=== PATIENT | female | born 1990 | race Caucasian/White ===

== ENCOUNTER 2017-01-01 10:33 | Emergency (ER) | payer MEDICAID ==
[~2017-01-01] VITALS: Ht 175.3 cm; Wt 122.2 kg
[~2017-01-01 10:33] MED LIST: CONCCAP2 PO
[2017-01-01 10:34] VITALS: BP 169/96; PULSE 88; RESP 20; TEMP 97.4; O2SAT 99
[2017-01-01] MEDS ORDERED: SODIUM CHLOR 0.9% 1000 ML INJ 1,000 ML IV ONE (10:48)
--- NOTE | 2017-01-01 10:53 | PD ---
HPI Chief Complaint: Dizziness Time Seen by Provider: 10:48 Travel History International Travel<30 days: No Contact w/Intl Traveler<30days: No Traveled to known affect area: No History of Present Illness HPI 26-year-old female who is 36 weeks by dates, had been seen by her nurse practitioner yesterday and had a mildly elevated blood pressure 140/89, otherwise normal , presents to the ER today because she states that she woke up this morning dizzy, states that the room is spinning, worse with head movements or position changes. She denies any headache, vomiting, fevers, diarrhea, or any other symptoms. She denies any bleeding or any urinary symptoms. She denies any previous history of dizziness. Modifying Factors: None Associated Signs & Symptoms: Dizziness Risk Factors: None PFSH Past Medical History Diminished Hearing: No Tetanus Vaccination: Unknown Influenza Vaccination: No ?: LMP: APR 2016 : 1 Para: 0 Social History Alcohol Use: No Tobacco Use: No Substance Use: No Allergies-Medications (Allergen,Severity, Reaction): Coded Allergies: No Known Allergies (Verified , 12/31/16) Reported Meds & Prescriptions Reported Meds & Active Scripts Active Concept Dha 53.5-38-1 mg ( Vit W/ Fe Fum-Iron Po) 1 Cap Cap 1 Tab PO DAILY Concept Dha 53.5-38-1 mg ( Vit W/ Fe Fum-Iron Po) 1 Cap Cap Review of Systems Except as stated in HPI: all other systems reviewed are Neg Physical Exam Narrative GENERAL: Well-developed gravid young white female patient who is not currently in acute distress. Awake and oriented 3. SKIN: Focused skin assessment warm/dry. HEAD: Atraumatic. Normocephalic. EYES: Pupils equal and round. No scleral icterus. No injection or drainage. ENT: No nasal bleeding or discharge. Mucous membranes pink and moist. NECK: Trachea midline. No JVD. CARDIOVASCULAR: Regular rate and rhythm. No murmur appreciated. RESPIRATORY: No accessory muscle use. Clear to auscultation. Breath sounds equal bilaterally. GASTROINTESTINAL: Abdomen gravid, non-tender, nondistended. Hepatic and splenic margins not palpable. MUSCULOSKELETAL: No obvious deformities. No clubbing. No cyanosis. No edema. NEUROLOGICAL: Awake and alert. No obvious cranial nerve deficits. Motor grossly within normal limits. Normal speech. PSYCHIATRIC: Appropriate mood and affect; insight and judgment normal. Data Data Last Documented VS Vital Signs Date Time Temp Pulse Resp B/P Pulse Ox O2 Delivery O2 Flow Rate FiO2 01/01/17 11:40 85 18 140/86 99 Room Air 01/01/17 10:34 97.4 Orders Electrocardiogram (01/01/17 10:48) Complete Blood Count With Diff (01/01/17 10:48) Comprehensive Metabolic Panel (01/01/17 10:48) Urinalysis - C+S If Indicated (01/01/17 10:48) Ecg Monitoring (01/01/17 10:48) Iv Access Insert/Monitor (01/01/17 10:48) Oximetry (01/01/17 10:48) Meclizine (Antivert) (01/01/17 11:00) Ondansetron Inj (Zofran Inj) (01/01/17 11:00) Sodium Chloride 0.9% Flush (Ns Flush) (01/01/17 11:00) Sodium Chlor 0.9% 1000 Ml Inj (Ns 1000 M (01/01/17 10:48) Labs Laboratory Tests Test 01/01/17 10:55 White Blood Count 7.7 TH/MM3 Red Blood Count 3.99 MIL/MM3 Hemoglobin 11.8 GM/DL Hematocrit 34.2 % Mean Corpuscular Volume 85.5 FL Mean Corpuscular Hemoglobin 29.5 PG Mean Corpuscular Hemoglobin 34.5 % Concent Red Cell Distribution Width 14.4 % Platelet Count 153 TH/MM3 Mean Platelet Volume 10.8 FL Neutrophils (%) (Auto) 74.6 % Lymphocytes (%) (Auto) 19.1 % Monocytes (%) (Auto) 5.3 % Eosinophils (%) (Auto) 0.6 % Basophils (%) (Auto) 0.4 % Neutrophils # (Auto) 5.8 TH/MM3 Lymphocytes # (Auto) 1.5 TH/MM3 Monocytes # (Auto) 0.4 TH/MM3 Eosinophils # (Auto) 0.0 TH/MM3 Basophils # (Auto) 0.0 TH/MM3 CBC Comment DIFF FINAL Differential Comment Urine Color LIGHT-YELLOW Urine Turbidity HAZY Urine pH 5.5 Urine Specific Mead 1.005 Urine Protein NEG mg/dL Urine Glucose (UA) NEG mg/dL Urine Ketones 10 mg/dL Urine Occult Blood NEG Urine Nitrite NEG Urine Bilirubin NEG Urine Urobilinogen LESS THAN 2.0 MG/DL Urine Leukocyte Esterase TRACE Urine RBC 1 /hpf Urine WBC 2 /hpf Urine Squamous Epithelial 6 /hpf Cells Urine Bacteria FEW /hpf Microscopic Urinalysis Comment CULT NOT INDICATED Sodium Level 140 MEQ/L Potassium Level 3.6 MEQ/L Chloride Level 109 MEQ/L Carbon Dioxide Level 23.4 MEQ/L Anion Gap 8 MEQ/L Blood Urea Nitrogen 6 MG/DL Creatinine 0.60 MG/DL Estimat Glomerular Filtration 119 ML/MIN Rate Random Glucose 74 MG/DL Calcium Level 8.7 MG/DL Total Bilirubin 0.3 MG/DL Aspartate Amino Transf 11 U/L (AST/SGOT) Alanine Aminotransferase 11 U/L (ALT/SGPT) Alkaline Phosphatase 116 U/L Total Protein 6.6 GM/DL Albumin 2.5 GM/DL [facility] Medical Decision Making Medical Screen Exam Complete: Yes Emergency Medical Condition: Yes Medical Record Reviewed: Yes Interpretation(s) EKG shows normal sinus rhythm at a rate of 70 bpm with no signs of acute ST-T changes. There is a sinus arrhythmia notable on EKG. EKG was briefly discussed with Dr. Amos who is cooperative education coordinator and he states that this is not necessarily concerning for any underlying cardiac issues. Laboratory Tests Test 01/01/17 10:55 Red Blood Count 3.99 MIL/MM3 (4.00-5.30) Hematocrit 34.2 % (35.0-46.0) Neutrophils (%) (Auto) 74.6 % (16.0-70.0) Urine Turbidity HAZY (CLEAR) Urine Ketones 10 mg/dL (NEG) Urine Leukocyte Esterase TRACE (NEG) Urine Bacteria FEW /hpf (NONE) Chloride Level 109 MEQ/L (98-107) Blood Urea Nitrogen 6 MG/DL (7-18) Aspartate Amino Transf 11 U/L (15-37) (AST/SGOT) Albumin 2.5 GM/DL (3.4-5.0) Differential Diagnosis Dizzinessbenign positional vertigo versus electrolyte abnormalities versus hypertensive urgency versus dehydration versus preeclampsia Narrative Course Patient was given IV fluids, nausea medication, and meclizine in the ER. On reevaluation an hour later, she is feeling much improved, is turning her head without issues. Vital signs are stable in the ER and blood pressure is significantly improved. At this point, I do not suspect underlying metabolic abnormalities, cardiac abnormalities, as the cause. I do suspect that she may have some underlying benign positional vertigo. 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 Return for any worsening in symptoms as necessary. The plan has been discussed with the patient and she states understanding. Diagnosis Primary Impression: Vertigo Med/Other Pt SpecificInfo: Prescription(s) given Scripts Ondansetron Odt (Zofran Odt)4 Mg Tab4 Mg SL Q6HR PRN (Nausea/Vomiting) #7 TAB Ref 0 Prov:Damion Aguero MD 01/01/17 Meclizine 25 Mg Tab25 Mg PO DIRECTED PRN (VERTIGO) #15 TAB Ref 0 Prov:Damion Aguero MD 01/01/17 Disposition: 01 DISCHARGE HOME Condition: Stable Damion Aguero MD Jan 01, 2017 10:53
[2017-01-01] MEDS ORDERED: MECLIZINE HCL 25 MG TAB PO ONE (11:00)
[2017-01-01] MEDS ORDERED: ONDANSETRON HCL 4 MG/2 ML VIAL IVP ONE (11:00)
[2017-01-01] MEDS ORDERED: SODIUM CHLORIDE 0.9% FLUSH 10 ML FLUSH IVF PRN (11:00)
[2017-01-01 11:13] LABS: AUTOMATED NEUTROPHIL # 5.8 TH/MM3 (1.8-7.7); BASOPHIL % 0.4 % (0.0-2.0); EOSINOPHIL % 0.6 % (0.0-4.0); HEMATOCRIT 34.2 % (35.0-46.0); HEMO FLAGS DIFF FINAL; LYMPH % 19.1 % (9.0-44.0); LYMPHOCYTE # 1.5 TH/MM3 (1.0-4.8); MEAN CELL VOLUME 85.5 FL (80.0-100.0); MEAN CORPUSCULAR HEMOGLOBIN 29.5 PG (27.0-34.0); MEAN CORPUSCULAR HGB CONC 34.5 % (32.0-36.0); MONO % 5.3 % (0.0-8.0); NEUT % 74.6 % (16.0-70.0); PLATELET COUNT 153 TH/MM3 (150-450); RED BLOOD COUNT 3.99 MIL/MM3 (4.00-5.30); RED CELL DISTRIBUTION WIDTH 14.4 % (11.6-17.2); WHITE BLOOD COUNT 7.7 TH/MM3 (4.0-11.0)
[2017-01-01 11:29] LABS: BACTERIA, URINE FEW /hpf; BLOOD, URINE NEG (NEG); COMMENT (UR) CULT NOT INDICATED; CULTURE IF INDICATED CULT NOT INDICATED; GLUCOSE,URINE NEG (NEG); KETONE, URINE 10 mg/dL (NEG); NITRITE,URINE NEG (NEG); PH, URINE 5.5 (5.0-8.5); SQUAMOUS EPITHELIAL CELL URINE 6 /hpf (0-5); URINE COLOR LIGHT-YELLOW (YELLW/STRAW)
[2017-01-01 11:40] VITALS: BP 140/86; PULSE 85; RESP 18; O2SAT 99
[2017-01-01 11:49] LABS: ALT (GPT) 11 U/L (10-53); ANION GAP 8 MEQ/L (5-15); AST (GOT) 11 U/L (15-37); BICARBONATE 23.4 MEQ/L (21.0-32.0); BLOOD UREA NITROGEN 6 MG/DL (7-18); CHLORIDE 109 MEQ/L (98-107); GLOMERULAR FILTRATION RATE 119 ML/MIN (>89); POTASSIUM 3.6 MEQ/L (3.5-5.1); SODIUM (NA) 140 MEQ/L (136-145)
[2017-01-01 11:51] LABS: ALKALINE PHOSPHATASE 116 U/L (45-117); TOTAL BILIRUBIN ADULT 0.3 MG/DL (0.2-1.0)
[2017-01-01] MEDS ORDERED: MECL-62 PO (12:25)
[2017-01-01] MEDS ORDERED: ZOFR4TAB3 SL (12:25)
--- NOTE | 2017-01-02 13:40 | EKG ---
Date Performed: 01/01/2017 Time Performed: 11:34:59 PTAGE: 26 years EKG: Sinus rhythm WITH 2ND DEGREE AV BLOCK, MOBITZ TYPE II MINIMAL VOLTAGE CRITERIA FOR LVH, CONSIDER NORMAL VARIANT M INIMAL ST DEPRESSION ABNORMAL ECG NO PREVIOUS TRACING DOCTOR: Live Brewer Interpretating Date/Time 01/04/2017 08:10:24
--- NOTE | 2017-01-02 13:40 | EKG ---
Date Performed: 01/01/2017 Time Performed: 12:27:36 PTAGE: 26 years EKG: Sinus rhythm Compared to prior tracing no significant change NORMAL ECG PREVIOUS TRACING : 01/01/2017 11.34 DOCTOR: Live Brewer Interpretating Date/Time 01/04/2017 08:10:10
== END 2017-01-01 12:43 | disposition home or self-care (01) ==
LOC: NEPE 10:33
DX: O99.89 Other specified diseases and conditions complicating pregnancy, childbirth and the puerperium (principal); R42 Dizziness and giddiness; R94.31 Abnormal electrocardiogram [ECG] [EKG]; Z3A.36 36 weeks gestation of pregnancy
CPT/HCPCS: 80053; 81001; 85025; 93005; 96360; 99284; J7030

== ENCOUNTER 2017-02-01 21:57 | Inpatient (IN) | payer MEDICAID ==
[~2017-02-01] VITALS: Ht 175.3 cm; Wt 122.5 kg
--- NOTE | 2017-02-01 23:15 | HHI.HP ---
HPI Chief Complaint 40 weeks IUP Presents in labor Date Seen: February 01, 2017 Time Seen: 22:00 Travel History International Travel<30 Days: No Contact w/Intl Traveler<30Days: No Known Affected Area: No History of Present Illness HPI Pt is a 26 yo who presents with c/o contractions. [facility] 01-31-2017 making her 40 weeks and 1 day today. care at [facility] No vaginal bleeding Denies leaking Pregnacy was complicated by low lying placenta but this subsequently resolved cervix 3 cm dilated with irregular contraction Para: 3 : 4 Last Menstrual Period: Apr 26, 2016 History Past Medical History Narrative Medical Nil significant Medical History: Denies Significant Hx Past Surgical History Surgical History: No Previous Surgery Family History Family History: Negative Social History Alcohol Use: No Tobacco Use: No Substance Abuse: No Allergies-Medications (Allergen,Severity, Reaction): Coded Allergies: No Known Allergies (Verified , 01/27/17) Home Meds Active Scripts Vit W/ Fe Fum-Iron Po (Concept Dha 53.5-38-1 mg)1 Cap Cap1 Tab PO DAILY #30 BOTTLE Ref 11 Prov:Lucille Medina 07/21/16 Vit W/ Fe Fum-Iron Po (Concept Dha 53.5-38-1 mg)1 Cap Cap Sample #6 Prov:Lucille Medina 07/21/16 Review of Systems Except as stated in HPI: all other systems reviewed are Neg Physical Exam Narrative GENERAL: Well-nourished, well-developed patient. SKIN: Warm and dry. HEAD: Normocephalic and atraumatic. EYES: No scleral icterus. No injection or drainage. ENT: No nasal drainage noted. Mucous membranes pink. Airway patent. NECK: Supple, trachea midline. No JVD. CARDIOVASCULAR: Regular rate and rhythm without murmurs, gallops, or rubs. RESPIRATORY: Breath sounds equal bilaterally. No accessory muscle use. BREASTS: Bilateral exam showed no masses , no retractions, no nipple discharge. ABDOMEN/GI: Abdomen soft, non-tender, bowel sounds present, no rebound, no guarding Gravid to [40] weeks size Fundal Height: [40] GENITOURINARY: External Genitalia: intact and normal in appearance BUS glands: [-] Cervix: [soft-] Dilatation: [3cm] Effacement: [50%] Station: [-3] Presentation: [Vertex] Membranes: [intact or ruptured] Uterine Contractions: [-] FHT's: Category: [-] Baseline: [-] Reactive: [-] Variability: [-] Decels: [-] EXTREMITIES: No cyanosis or edema. BACK: Nontender without obvious deformity. No CVA tenderness. NEUROLOGICAL: Awake and alert. Motor and sensory grossly within normal limits. Five out of 5 muscle strength in all muscle groups. Normal speech. Data Data Vital Signs Reviewed: Yes Orders Ob (2e) Additional Admit Info (02/01/17 22:47) Labs Term labor Plan is for ptiocin augmentation, and AROM when able. GBS is negative. Ricky Colunga MD February 01, 2017 23:15
[2017-02-01] MEDS ORDERED: LACTATED RINGER'S 1000 ML INJ 1,000 ML IV SCH (23:25)
[2017-02-01] MEDS ORDERED: LACTATED RINGER'S 1000 ML INJ 1,000 ML IV PRN (23:25)
[2017-02-01] MEDS ORDERED: LIDOCAINE HCL 1% 50 ML VIAL I-DERMAL PRN (23:30)
[2017-02-01] MEDS ORDERED: OXYTOCIN 30 UNITS-500ML PREMIX 500 ML IV ONE (23:30)
[2017-02-01] MEDS ORDERED: SODIUM CHLORID 0.9% 500 ML INJ 500 ML IV PRN (23:30)
[2017-02-01] MEDS ORDERED: ONDANSETRON HCL 4 MG/2 ML VIAL IV PRN (23:30)
[2017-02-01] MEDS ORDERED: LIDOCAINE HCL 1% 50 ML VIAL INFIL PRN (23:30)
[2017-02-01] MEDS ORDERED: OXYTOCIN 30 UNITS-500ML PREMIX 500 ML IV SCH (23:30)
[2017-02-01] MEDS ORDERED: CITRIC ACID-SODIUM CITRATE LIQ 30 ML UDC PO SCH (23:30)
[2017-02-01] MEDS ORDERED: MINERAL OIL 10 ML VIAL TOPICAL PRN (23:30)
[2017-02-01 23:43] LABS: AUTOMATED NEUTROPHIL # 6.1 TH/MM3 (1.8-7.7); BASOPHIL % 0.2 % (0.0-2.0); EOSINOPHIL % 0.6 % (0.0-4.0); HEMATOCRIT 34.5 % (35.0-46.0); HEMO FLAGS DIFF FINAL; LYMPH % 21.5 % (9.0-44.0); LYMPHOCYTE # 1.8 TH/MM3 (1.0-4.8); MEAN CELL VOLUME 85.7 FL (80.0-100.0); MEAN CORPUSCULAR HEMOGLOBIN 28.4 PG (27.0-34.0); MEAN CORPUSCULAR HGB CONC 33.2 % (32.0-36.0); MONO % 5.1 % (0.0-8.0); NEUT % 72.6 % (16.0-70.0); PLATELET COUNT 146 TH/MM3 (150-450); RED BLOOD COUNT 4.03 MIL/MM3 (4.00-5.30); RED CELL DISTRIBUTION WIDTH 14.8 % (11.6-17.2); WHITE BLOOD COUNT 8.4 TH/MM3 (4.0-11.0)
[2017-02-01 23:45] LABS: BACTERIA, URINE MANY /hpf; BLOOD, URINE NEG (NEG); COMMENT (UR) CULTURE INDICATED; CULTURE IF INDICATED CULTURE INDICATED; GLUCOSE,URINE NEG (NEG); HYALINE CAST, URINE 1 /lpf (RARE); KETONE, URINE NEG (NEG); MUCUS URINE FEW /lpf (OCC); NITRITE,URINE NEG (NEG); SQUAMOUS EPITHELIAL CELL URINE 4 /hpf (0-5); URINE COLOR LIGHT-YELLOW (YELLW/STRAW)
[2017-02-01] MEDS ORDERED: SODIUM CHLOR 0.9% 1000 ML INJ 1,000 ML IV PRN (23:45)
[2017-02-02] VITALS (58 sets, daily range): BP systolic 75–135; BP diastolic 48–81; PULSE 76–122; RESP 1–18; TEMP 97.8–98.4
[2017-02-02] MEDS ORDERED: fentaNYL 2MCG-BUPIV 0.125% INJ 100 ML ONE (03:57)
--- NOTE | 2017-02-02 04:00 | PD.LABORPN ---
Subjective Subjective Pt feeling contractions. FHR Cat 1 baseline 120b/min TOCO Q2-3 minutes, Pitocin at 3 MU/min SVE 5cm/ 50%/-2 AROM done with AmniHook, copious, clear IUPC inserted PLAN: Continue Pitocin per protocol Objective Vital Signs Vital Signs Date Time Temp Pulse Resp B/P Pulse Ox O2 Delivery O2 Flow Rate FiO2 02/02/17 03:31 78 118/78 02/02/17 03:08 79 110/65 02/02/17 03:04 98.2 18 02/02/17 03:01 82 110/69 02/02/17 02:45 18 02/02/17 02:45 1 02/02/17 02:31 117/67 02/02/17 02:31 76 02/02/17 02:01 82 102/77 02/02/17 01:44 18 02/02/17 01:31 93 117/76 02/02/17 01:01 96 112/74 02/02/17 00:48 85 116/68 02/02/17 00:47 18 02/02/17 00:45 18 02/02/17 00:31 84 113/65 02/02/17 00:15 18 02/02/17 00:11 88 110/66 Objective Pelvic Exam: Cervix: [soft-] Dilatation: [6cm-] Effacement: 50%[-] Station: [-2-] Presentation: [vertex] Membranes: [ruptured] Uterine Contractions: [2-3-] FHT's: Category: [1] Baseline: [120] Reactive: [-] Variability: [moderate] Decels: [-] Assessment/Plan Assessment and Plan Term labor. Continue pitocin per protocol Ricky Colunga MD February 02, 2017 04:00
[2017-02-02] MEDS ORDERED: NO SYSTEM NARCOTICS PRN (05:00)
[2017-02-02] MEDS ORDERED: ePHEDrine/NS 25 MG/5 ML SYR IV PRN (05:00)
[2017-02-02] MEDS ORDERED: DO NOT ADMINISTER ANTICOAGULANTS PRN (05:00)
[2017-02-02] MEDS ORDERED: fentaNYL 2MCG-BUPIV 0.125% 100 ML EPIDURAL SCH (05:00)
--- NOTE | 2017-02-02 05:22 | PD.OB.DELI ---
Delivery Date: February 02, 2017 Anesthesia: Epidural Episiotomy: None Vaginal Delivery: Normal Presentation: Occiput anterior Nuchal Cord: x1 Delayed cord clamping (45 sec): No : Female One Minute : 9 Five Minute : 9 Weight: 3595grams ( 7lb 15oz) Placenta: Spontaneous delivery Laceration: No lacerations Ricky Colunga MD February 02, 2017 05:22
[2017-02-02] MEDS ORDERED: ONDANSETRON ODT 4 MG TAB PO PRN (05:30)
[2017-02-02] MEDS ORDERED: SODIUM CHLORIDE 0.9% FLUSH 10 ML FLUSH IV FLUSH PRN (05:30)
[2017-02-02] MEDS ORDERED: ZOLPIDEM TARTRATE 5 MG TAB PO PRN (05:30)
[2017-02-02] MEDS ORDERED: ALUMINUM/MAGNESIUM/SIMETH 30 ML CUP PO PRN (05:30)
[2017-02-02] MEDS ORDERED: IBUPROFEN 600 MG TAB PO PRN (05:30)
[2017-02-02] MEDS ORDERED: BENZOCAINE 20% TOPICAL SPRAY 60 ML CAN TOPICAL PRN (05:30)
[2017-02-02] MEDS ORDERED: OXYTOCIN 30 UNITS-500ML PREMIX 500 ML IV ONE (05:30)
[2017-02-02] MEDS ORDERED: ACETAMINOPHEN 325 MG TAB PO PRN (05:30)
[2017-02-02] MEDS ORDERED: WITCH HAZEL 50%/GLYCERIN 12.5% 40 PAD JAR TOPICAL PRN (05:30)
[2017-02-02] MEDS ORDERED: oxyCODONE/ACETAMINOPHEN 5 MG/325 MG TAB PO PRN (05:30)
[2017-02-02] MEDS ORDERED: DOCUSATE SODIUM 50 MG/SENNA 8.6 MG TAB PO PRN (05:30)
--- NOTE | 2017-02-02 08:38 | HHI.OB ---
Subjective Post Day: 0 Remarks Patient is a 26-year-old delivered at 40 weeks and 2 days. Patient is day 0 after normal vaginal delivery. Patient's pain is well- controlled. Patient reports drinking without any nausea or vomiting. Patient reports minimal bleeding. Patient has passed gas but no bowel movements. Patient is walking without lower extremity pain or shortness of breath. Patient reports desire for contraception with tubal ligation. Objective Vitals/I&O Vital Signs Date Time Temp Pulse Resp B/P Pulse Ox O2 Delivery O2 Flow Rate FiO2 02/02/17 07:11 96 103/61 02/02/17 07:09 98.4 18 02/02/17 07:01 91 113/65 02/02/17 06:48 18 02/02/17 06:46 76 120/68 02/02/17 06:31 78 104/59 02/02/17 06:19 18 02/02/17 06:16 94 103/66 02/02/17 06:05 18 02/02/17 06:01 88 104/56 02/02/17 05:50 18 02/02/17 05:46 94 94/66 02/02/17 05:35 97.9 02/02/17 05:35 18 02/02/17 05:31 87 111/49 02/02/17 05:20 18 02/02/17 05:15 95 02/02/17 05:10 115 02/02/17 05:10 93 96/61 02/02/17 05:05 94 02/02/17 05:03 104 75/48 02/02/17 05:01 95 92/48 02/02/17 05:00 105 02/02/17 04:51 89 107/57 02/02/17 04:50 87 02/02/17 04:46 87 114/49 02/02/17 04:45 87 02/02/17 04:45 97.8 02/02/17 04:42 18 02/02/17 04:41 79 108/58 02/02/17 04:40 79 02/02/17 04:36 86 104/54 02/02/17 04:35 85 02/02/17 04:31 83 120/62 02/02/17 04:30 84 18 02/02/17 04:26 122 116/71 02/02/17 04:25 82 02/02/17 04:21 92 127/65 02/02/17 04:20 90 02/02/17 04:18 90 135/81 02/02/17 04:15 79 02/02/17 04:01 76 116/81 02/02/17 04:00 18 02/02/17 03:57 18 02/02/17 03:31 78 118/78 02/02/17 03:08 79 110/65 02/02/17 03:04 98.2 18 02/02/17 03:01 82 110/69 02/02/17 02:45 18 02/02/17 02:45 1 02/02/17 02:31 117/67 02/02/17 02:31 76 02/02/17 02:01 82 102/77 02/02/17 01:44 18 02/02/17 01:31 93 117/76 02/02/17 01:01 96 112/74 02/02/17 00:48 85 116/68 02/02/17 00:47 18 02/02/17 00:45 18 02/02/17 00:31 84 113/65 02/02/17 00:15 18 02/02/17 00:11 88 110/66 Objective Remarks GENERAL: Well-nourished, well-developed obese female patient. CARDIOVASCULAR: Regular rate and rhythm without murmurs, gallops, or rubs. RESPIRATORY: Breath sounds equal bilaterally. No accessory muscle use. ABDOMEN/GI: Abdomen soft, non-tender. Fundus: Firm, non-tender at umbilicus. GENITOURINARY: Light to moderate bleeding. EXTREMITIES: No cyanosis or edema, non-tender, without signs of DVT. Medications and IVs Current Medications Medications (Trade) Dose Ordered Sig/Roberto Route Start Time Stop Time Status Last Admin Miscellaneous Information No systemic narcotics to be given except... UNSCH PRN .XX 02/02/17 05:00 02/03/17 04:59 Miscellaneous Information DO NOT ADMINISTER ANY ANTICOAGUL... UNSCH PRN .XX 02/02/17 05:00 02/03/17 04:59 (NS Flush) 2 ml UNSCH PRN IV FLUSH 02/02/17 05:30 (Tylenol) 650 mg Q4H PRN PO 02/02/17 05:30 (Motrin) 600 mg Q6H PRN PO 02/02/17 05:30 (Percocet 5-325 Mg) 1 tab Q4H PRN PO 02/02/17 05:30 (Americaine 20% Top Spr) 1 spray Q4H PRN TOPICAL 02/02/17 05:30 (Tucks Pads) 1 applic QID PRN TOPICAL 02/02/17 05:30 (Yadira-Colace) 2 tab Q12H PRN PO 02/02/17 05:30 (Ambien) 5 mg HS PRN PO 02/02/17 05:30 (M-M-R Ii Inj) 0.5 ml ONCE ONCE SQ 02/02/17 16:00 02/02/17 16:01 (Boostrix Inj) 0.5 ml ONCE ONCE IM 02/02/17 16:00 02/02/17 16:01 (Mag-Al Plus Susp Liq) 15 ml Q8H PRN PO 02/02/17 05:30 (Zofran Odt) 4 mg Q6H PRN PO 02/02/17 05:30 Assessment/Plan Problem List: (1) (spontaneous vaginal delivery) Assessment and Plan Patient is a 26-year-old delivered at 40 weeks and 2 days. Patient is day 0 after normal vaginal delivery. Patient was counseled to do 6 weeks of pelvic rest. Patient was counseled to follow up in 6 weeks. Patient requested contraception with tubal ligation as an outpatient. --AF VSS --Continue routine care --Motrin and Percocet when necessary for pain --Encourage OOB --Pelvic rest for 6 weeks will need follow-up appointment at that time. --Contraception: Patient plans on outpatient tubal ligation --Anticipate discharge in 1-2 days Discharge Planning Anticipate discharge in 1-2 days Jim Mustafa MD R1 February 02, 2017 08:38
[2017-02-02] MEDS ORDERED: DIPHTH/TETANUS/ACEL PERTUSSIS (BOOSTER) 0.5 ML VIAL/PFS IM ONE (16:00)
[2017-02-02] MEDS ORDERED: MEASLES, MUMPS, RUBELLA VACCINE 0.5 ML VIAL SQ ONE (16:00)
[2017-02-03 08:25] VITALS: BP 116/69; PULSE 76; RESP 18; TEMP 98.6
--- NOTE | 2017-02-03 11:27 | HHI.OB ---
Subjective Post Day: 1 Remarks Patient is a 26-year-old who delivered at 40 weeks and 2 days. Patient is day 1 after normal vaginal delivery. Patient's pain is well- controlled. Patient reports drinking without any nausea or vomiting. Patient reports a little bleeding. Patient has passed gas and bowel movements. Patient is walking without lower extremity pain or shortness of breath. Patient reports desire for contraception with outpatient tubal ligation. Objective Vitals/I&O Vital Signs Date Time Temp Pulse Resp B/P Pulse Ox O2 Delivery O2 Flow Rate FiO2 02/03/17 08:25 76 18 116/69 02/03/17 08:25 98.6 02/02/17 19:50 76 115/66 02/02/17 19:50 98.0 17 Objective Remarks GENERAL: Well-nourished, well-developed obese female patient. CARDIOVASCULAR: Regular rate and rhythm without murmurs, gallops, or rubs. RESPIRATORY: Breath sounds equal bilaterally. No accessory muscle use. ABDOMEN/GI: Abdomen soft, non-tender. Fundus: Firm, non-tender at umbilicus. GENITOURINARY: Light to moderate bleeding. EXTREMITIES: No cyanosis or edema, non-tender, without signs of DVT. Medications and IVs Current Medications Medications (Trade) Dose Ordered Sig/Roberto Route Start Time Stop Time Status Last Admin (NS Flush) 2 ml UNSCH PRN IV FLUSH 02/02/17 05:30 (Tylenol) 650 mg Q4H PRN PO 02/02/17 05:30 (Motrin) 600 mg Q6H PRN PO 02/02/17 05:30 02/02/17 23:17 (Percocet 5-325 Mg) 1 tab Q4H PRN PO 02/02/17 05:30 (Americaine 20% Top Spr) 1 spray Q4H PRN TOPICAL 02/02/17 05:30 02/02/17 14:35 (Tucks Pads) 1 applic QID PRN TOPICAL 02/02/17 05:30 02/02/17 14:35 (Yadira-Colace) 2 tab Q12H PRN PO 02/02/17 05:30 (Ambien) 5 mg HS PRN PO 02/02/17 05:30 (Mag-Al Plus Susp Liq) 15 ml Q8H PRN PO 02/02/17 05:30 (Zofran Odt) 4 mg Q6H PRN PO 02/02/17 05:30 Assessment/Plan Problem List: (1) (spontaneous vaginal delivery) Assessment and Plan Patient is a 26-year-old who delivered at 40 weeks and 2 days. Patient is day 1 after normal vaginal delivery. Patient was counseled to do 6 weeks of pelvic rest. Patient was counseled to follow up in 6 weeks. Patient requested contraception with tubal ligation as an outpatient, and she declined any form of contraception that we offer here in the hospital. --AF VSS --Continue routine care --Motrin and Percocet when necessary for pain. Discharge on Motrin and Tylenol. --Encourage OOB --Pelvic rest for 6 weeks will need follow-up appointment at that time. --Contraception: Patient plans on outpatient tubal ligation --Anticipate discharge today Discharge Planning Anticipate discharge today. Jim Mustafa MD R1 February 03, 2017 11:27
[2017-02-03] MEDS ORDERED: ACET1TAB86 PO (11:28)
[2017-02-03] MEDS ORDERED: Ibuprofen PO (11:28)
--- NOTE | 2017-02-03 11:29 | HHI.DCPOC ---
Discharge Care Plan Diagnosis: (1) (spontaneous vaginal delivery) Report Symptoms to Your Doctor -Temperature above 100.5 degrees -Redness, of incision or excessive or foul smelling drainage -Unusual pain or calf pain -Increased vaginal bleeding -Painful or difficulty urinating -Feelings of extreme sadness or anxiety after 2 weeks Goals to Promote Your Health * To prevent worsening of your condition and complications, please follow-up with your doctor within 6 weeks. * To maintain your health at the optimal level, please stay well hydrated, eat a well-balanced diet, and exercise regularly. Directions to Meet Your Goals Take your medications as prescribed Follow your dietary instruction Follow activity as directed Ensure plenty of rest for recovery Drink fluids for hydration Keep your appointments as scheduled Take your immunizations and boosters as scheduled If your symptoms worsen call your PCP, if no PCP go to Urgent Care Center or Emergency Room Smoking is Dangerous to Your Health. Avoid second hand smoke Call the 24-hour crisis hotline for domestic abuse at Jim Mustafa MD R1 February 03, 2017 11:29
== END 2017-02-03 13:07 | disposition home or self-care (01) | DRG 775 ==
LOC: HOBED 21:57 → H2EB 22:48 → H1EA 02-02 07:29
PROVIDERS: ADMIT Obstetrics & Gynecology; ATTEND Obstetrics & Gynecology
PROC: 10E0XZZ Delivery of Products of Conception, External Approach (ICD-10-PCS; principal; 2017-02-02)
PROC: 10907ZC Drainage of Amniotic Fluid, Therapeutic from Products of Conception, Via Natural or Artificial Opening (ICD-10-PCS; 2017-02-02)
PROC: 10H073Z Insertion of Monitoring Electrode into Products of Conception, Via Natural or Artificial Opening (ICD-10-PCS; 2017-02-02)
PROC: 3E0S3CZ (ICD-10-PCS; 2017-02-02)
PROC: 00HU33Z Insertion of Infusion Device into Spinal Canal, Percutaneous Approach (ICD-10-PCS; 2017-02-02)
DX: O69.81X0 Labor and delivery complicated by cord around neck, without compression, not applicable or unspecified (principal); O99.213 Obesity complicating pregnancy, third trimester; E66.9 Obesity, unspecified; Z68.39 Body mass index [BMI] 39.0-39.9, adult; Z3A.40 40 weeks gestation of pregnancy; Z37.0 Single live birth
CPT/HCPCS: 59025; 81001; 85025; 86900; 86901; 87086; J2590; J7120